=== PATIENT | female | born 1945 | race Caucasian/White ===

== ENCOUNTER 2018-09-19 16:20 | Emergency (ER) | payer MEDICARE ==
--- NOTE | 2018-09-19 17:16 | UC ---
Psychiatric Complaint HPI - HPI Summary HPI Summary: 73 yo female with longstanding anxiety was changed from lexapor to wellbutrin 2 1/2 weeks ago The change was made because she had been on lexapro "for a long time" and her doctor wanted to try something different. She said her symptoms were well controlled on lexapro Has had increasing anxiety since starting the wellbutrin dry mouth/anxiety and occasion palpitations no CP no leg pain or swelling visiting from [place] no SI or [place] - History Of Current Complaint Chief Complaint: UCGeneralIllness Stated Complaint: ANXIETY, POSS ALLERGIC REACTION Time Seen by Provider: 09/19/18 16:41 Hx Obtained From: Patient Onset/Duration: Gradual Onset, Lasting Weeks Timing: Constant Severity Initially: Mild Severity Currently: Severe Character: Anxious Aggravating Factor(s): Recent Stress, Other - recent medication change - Allergies/Home Medications Allergies/Adverse Reactions: Allergies Allergy/AdvReac Type Severity Reaction Status Date / Time No Known Allergies Allergy Verified 09/19/18 16:35 Home Medications: Home Medications Aspirin 81 mg CHEW TAB* [Aspirin Low Dose TAB*] 81 mg PO DAILY 09/19/18 [ History Confirmed 09/19/18] Atorvastatin* [Lipitor*] 10 mg PO DAILY 09/19/18 [History Confirmed 09/19/18] L.acidoph,Paracasei, B.lactis [Probiotic] 1 each PO DAILY 09/19/18 [History Confirmed 09/19/18] Losartan TAB* [Cozaar TAB*] 25 mg PO DAILY 09/19/18 [History Confirmed 09/19/18] NIFEdipine CAP* [Procardia CAP*] 10 mg PO DAILY 09/19/18 [History Confirmed ] Pantoprazole TAB * [Protonix TAB*] 40 mg PO DAILY 09/19/18 [History Confirmed ] buPROPion TAB* [Wellbutrin TAB*] 150 mg PO DAILY 09/19/18 [History Confirmed ] PMH/Surg Hx/FS Hx/Imm Hx Previously Healthy: Yes Endocrine History: Dyslipidemia Cardiovascular History: Hypertension - Surgical History Surgical History: Yes Surgery Procedure, Year, and Place: BILATERAL KNEE. RECTAL PROLAPSE. GALL BLADDER - Social History Alcohol Use: Occasionally Substance Use Type: None Smoking Status (MU): Former Smoker Have You Smoked in the Last Year: No When Did the Patient Quit Smoking/Using Tobacco: 40 YEARS AGO Review of Systems All Other Systems Reviewed And Are Negative: Yes Constitutional: Positive: Negative Skin: Positive: Negative Eyes: Positive: Negative ENT: Positive: Negative Respiratory: Positive: Negative Cardiovascular: Positive: Negative Gastrointestinal: Positive: Negative Genitourinary: Positive: Negative Motor: Positive: Negative Neurovascular: Positive: Negative Musculoskeletal: Positive: Negative Neurological: Positive: Negative Psychological: Positive: Anxious Physical Exam Triage Information Reviewed: Yes Appearance: Well-Appearing, No Pain Distress, Well-Nourished Vital Signs: Initial Vital Signs Temp 98.5 F 09/19/18 16:39 Pulse 92 09/19/18 16:39 Resp 16 09/19/18 16:39 BP 152/69 09/19/18 16:39 Pulse Ox 100 09/19/18 16:39 Vital Signs Reviewed: Yes Eyes: Positive: Conjunctiva Clear ENT: Positive: Hearing grossly normal. Negative: Nasal congestion, Nasal drainage, Trismus, Muffled voice, Hoarse voice Dental Exam: Normal Neck: Positive: Supple, Nontender, No Lymphadenopathy Respiratory: Positive: Lungs clear, Normal breath sounds, No respiratory distress, No accessory muscle use Cardiovascular: Positive: RRR, No Murmur Musculoskeletal: Positive: ROM Intact, No Edema Neurological: Positive: Alert Psychological Exam: Normal - expresses that she is anxious but her mood and affect are normal Skin Exam: Normal Psych Complaint Course/Dx - Differential Dx/Diagnosis Provider Diagnosis: Anxiety Discharge - Sign-Out/Discharge Documenting (check all that apply): Patient Departure All imaging exams completed and their final reports reviewed: No Studies - Discharge Plan Condition: Stable Disposition: HOME Prescriptions: Escitalopram * [Lexapro 5 mg (NF)] 5 mg PO DAILY #14 tab Patient Education Materials: Anxiety (ED) Additional Instructions: see your MD when you get home stop wellbutrin - Billing Disposition and Condition Condition: STABLE Disposition: Home
== END 2018-09-19 17:24 | disposition home or self-care (01) ==
LOC: UCCORT 16:20
DX: F41.9 Anxiety disorder, unspecified (principal); I10 Essential (primary) hypertension; E78.5 Hyperlipidemia, unspecified
CPT/HCPCS: 93005; 99201; G0463